=== PATIENT | female | born 1945 | race Caucasian/White ===

== ENCOUNTER 2017-01-15 11:55 | Emergency (ER) | payer MEDICARE ==
--- NOTE | 2017-01-15 13:41 | UC ---
Ear Complaint HPI - HPI Summary HPI Summary: This is a 71 yo female with a h/o of anxiety and IBS who presents with complaints of R ear pain. Patient was seen by her PCP 5 days ago with the same complaint and associated drainage from her R ear. She had preceding rhinorrhea which she assumed was due to seasonal allergies and started taking OTC Lauren D. She was diagnosed with what sounds like otitis externa by her PCP and started on Neomycin-polymixin solution. She states she may have felt slightly better the last few days but this am the pain/pressure in her R ear was much worse so she came to for evaluation. She has been afebrile at home. No headaches. Still having some drainage. She denies tinnitus but reports reduced hearing. - History of Current Complaint Chief Complaint: UCEar Stated Complaint: EAR PAIN - Allergies/Home Medications Allergies/Adverse Reactions: Allergies Allergy/AdvReac Type Severity Reaction Status Date / Time Metoclopramide [From Reglan] Allergy See Comment Verified 01/15/17 12:45 Home Medications: Home Medications Fexofenadine-Pseudoephedrine [Lauren-D 24 Hour Allergy 180-240 mg] 1 tab PO 09/23 [History] PMH/Surg Hx/FS Hx/Imm Hx Endocrine History Of: Denies: Diabetes, Thyroid Disease Cardiovascular History Of: Denies: Cardiac Disorders, Hypertension Respiratory History Of: Denies: COPD, Asthma GI/ History Of: Denies: Ulcer Psychological History Of: Reports: Anxiety - Surgical History Surgical History: Yes Surgery Procedure, Year, and Place: hysterectomy - Family History Known Family History: Positive: None - Social History Alcohol Use: Rare Substance Use Type: None Smoking Status (MU): Never Smoked Tobacco Review of Systems Constitutional: Negative Skin: Negative Eyes: Negative ENT: Ear Ache, Nasal Discharge Respiratory: Negative Cardiovascular: Negative Gastrointestinal: Negative Genitourinary: Negative Motor: Negative Neurovascular: Negative Musculoskeletal: Negative Neurological: Negative Psychological: Anxious All Other Systems Reviewed And Are Negative: Yes Physical Exam Triage Information Reviewed: Yes Appearance: Well-Appearing - but anxious Vital Signs: Initial Vital Signs Temp 98.6 F 01/15/17 12:34 Pulse 72 01/15/17 12:34 Resp 18 01/15/17 12:34 BP 153/85 01/15/17 12:34 Pulse Ox 99 01/15/17 12:34 Vital Signs Reviewed: Yes Eyes: Positive: Conjunctiva Clear ENT: Positive: Hearing grossly normal, Pharynx normal, Nasal congestion, TMs normal - L TM WNL, Other: - R EAC is grossly edematous, no erythema or active drainage, no TTP over mastoid process Neck: Positive: Supple, Nontender, No Lymphadenopathy Respiratory: Positive: Chest non-tender, Lungs clear. Negative: Crackles, Rhonchi, Wheezing Cardiovascular: Positive: RRR, No Murmur Abdomen Description: Positive: Nontender Ear Complaint Course/Dx - Course Course Of Treatment: This is an otherwise healthy female recently diagnosed with OE who presents with increasing pain and c/o rhinorrhea. Unable to visualize R TM due to edema of the EAC. Since TM rupture is unable to be fully evaluated, recommend d/cing Neomycin solution and replace with Ciprodex. Also augment allergy treatment with fluticasone nasal spray which should help with pain relief if she has additional serous effusion contributing to her pain. Keep f/u with PCP that she has in ~10 days. Also noted to be hypertensive which may be due to Lauren D and/or anxiety. Recommend further f/u with PCP. - Differential Dx/Diagnosis Differential Diagnosis/HQI/PQRI: Mastoiditis, Otitis Externa, Otitis Media, Perforated TM Provider Diagnoses: 1. R otitis externa. 2. Allergic rhinitis. 3. HTN - recommend f/u with PCP. 4. Serous otitis Discharge - Discharge Plan Condition: Stable Disposition: HOME Prescriptions: Ciproflox/Dexameth OTIC.SUSP* [Ciprodex OTIC.SUSP*] 4 drop OTIC BID #1 btl Fluticasone Propionate (Nasal) [Allergy Nasal [place] 24 Ho] 1 spray EN BID #1 bottle Patient Education Materials: Otitis Externa (ED), Serous Otitis Media (ED) Additional Instructions: Activity: As tolerated Instructions: 1. Please stop taking your current ear drops 2. Start new ear drops and nasal spray 3. Use Ibuprofen for additional relief from ear pain 4. Keep your follow up appointment with your PCP
== END 2017-01-15 13:40 | disposition home or self-care (01) ==
LOC: UCEAST 11:55
DX: H60.91 Unspecified otitis externa, right ear (principal); H65.90 Unspecified nonsuppurative otitis media, unspecified ear; J30.9 Allergic rhinitis, unspecified; I10 Essential (primary) hypertension; R03.0 Elevated blood-pressure reading, without diagnosis of hypertension
CPT/HCPCS: 99202; G0463

== ENCOUNTER 2017-01-26 19:22 | Emergency (ER) | payer MEDICARE ==
[2017-01-26] MEDS ORDERED: Ketorolac INJ* 60 MG/2 ML VIAL IM ONE (20:05)
--- NOTE | 2017-01-26 20:45 | ED ---
Elena Redman Michael, scribed for Андрей Crawley MD on 01/26/17 at 2016 . Headache - HPI Summary HPI Summary: 71 y/o female comes to the ED presenting with a GALAN and neck pain that has been constant for 3 days. The pt describes the GALAN as pressure in the occipital lobes and throbbing in the bilateral temporal lobes. The neck pain is described as stiffness. The pt reports that she has had a hx of GALAN and neck pain for the past 4 years and 4 months that normally occur in intermittent episodes, and she was worried because her sx were constant for 3 days. She also c/o LUE pain that radiates down her extremity to her left 3rd digit. The pt took one tablet of Ibuprofen at 1400 that did not alleviated the pain. - History Of Current Complaint Chief Complaint: EDHeadache Stated Complaint: SEVERE HEAD,SHOLDER,ARM PAIN Time Seen by Provider: 01/26/17 19:58 Hx Obtained From: Patient, Medical Records Onset/Duration: Gradual Onset, Started days ago, Still Present Initially Headache Was: Moderate Currently Pain Is: Moderate Timing: Constant Character: Throbbing, Pressure Location of Headache: Temporal, Occipital Aggravating Factor: Other - spontaneous Allevating Factors: Nothing Associated Signs And Symptoms: Neck Pain, Neck Stiffness, Other (Noted In Comments) - GALAN. LUE pain - Allergies/Home Medications Allergies/Adverse Reactions: Allergies Allergy/AdvReac Type Severity Reaction Status Date / Time Metoclopramide [From Reglan] Allergy See Comment Verified 01/15/17 12:45 PMH/Surg Hx/FS Hx/Imm Hx Endocrine/Hematology History: Denies: Hx Diabetes, Hx Thyroid Disease Cardiovascular History: Denies: Hx Hypertension Respiratory History: Denies: Hx Asthma, Hx Chronic Obstructive Pulmonary Disease (COPD) GI History: Denies: Hx Ulcer Psychiatric History: Reports: Hx Anxiety - Surgical History Surgery Procedure, Year, and Place: hysterectomy Infectious Disease History: No Infectious Disease History: Denies: Hx Hepatitis, Hx Human Immunodeficiency Virus (HIV), Traveled Outside the [place] in Last 30 Days - Family History Known Family History: Positive: None Family History: pt denies significant FHx - Social History Occupation: Retired Lives: With Family Alcohol Use: Rare Substance Use Type: Reports: None Smoking Status (MU): Never Smoked Tobacco Review of Systems Negative: Fever Positive: Other - neck pain. LUE pain. Positive: Headache All Other Systems Reviewed And Are Negative: Yes Physical Exam Triage Information Reviewed: Yes Vital Signs On Initial Exam: Initial Vitals Temp Pulse Resp BP Pulse Ox 99.5 F 99 18 171/95 100 01/26/17 19:28 01/26/17 19:28 01/26/17 19:28 01/26/17 19:28 01/26/17 19:28 Vital Signs Reviewed: Yes Appearance: Positive: Well-Appearing, Pain Distress - mild discomfort Skin: Positive: Warm Head/Face: Positive: Normal Head/Face Inspection Eyes: Positive: SHILOH ENT: Positive: Hearing grossly normal Neck: Positive: Supple, Nontender Respiratory/Lung Sounds: Positive: Clear to Auscultation, Breath Sounds Present Abdomen Description: Positive: Nontender, Soft Bowel Sounds: Positive: Present Musculoskeletal: Positive: Strength/ROM Intact Neurological: Positive: Sensory/Motor Intact, Alert, Oriented to Person Place, Time, Normal Gait Psychiatric: Positive: Affect/Mood Appropriate Diagnostics - Vital Signs Vital Signs Temp Pulse Resp BP Pulse Ox 01/26/17 19:28 99.5 F 99 18 171/95 100 - Laboratory Lab Statement: Any lab studies that have been ordered have been reviewed, and results considered in the medical decision making process. - CT Brain CT CT Interpretation: No Acute Changes - Atrophy without evidence of intracranial mass or hemorrhage CT Interpretation Completed By: Radiologist Re-Evaluation - Re-Evaluation First Eval Change: Improved Headache Course/Dx - Diagnoses Provider Diagnoses: Headache Discharge - Discharge Plan Condition: Stable Disposition: HOME Patient Education Materials: General Headache (ED) Referrals: [facility] PHYSICIAN REFERRAL [Outside] Jose R Shoemaker MD [Primary Care Provider] - Additional Instructions: You should follow up with [facility] Physician Referral within the next three days. You can also follow up with Dr. Shoemaker if is still your Primary Care Physician. The documentation as recorded by the Elena morales Michael accurately reflects the service I personally performed and the decisions made by me, Андрей Crawley MD.
--- NOTE | 2017-01-26 20:59 | RAD ---
Indication: Headache. CT of the brain was performed without IV contrast. Ventricular structures are midline. No midline shift is noted. The extra-axial spaces are unremarkable. There is no evidence of intracranial mass or hemorrhage. No other high or low density lesions are identified. Mastoid air cells and paranasal sinuses are otherwise unremarkable. IMPRESSION: Atrophy without evidence of intracranial mass or hemorrhage.
== END 2017-01-26 22:33 | disposition home or self-care (01) ==
LOC: ED 19:22
DX: M54.2 Cervicalgia (principal); R51 Headache
CPT/HCPCS: 70450; 96372; 99282; J1885